=== PATIENT | male | born 1975 | race Caucasian/White ===

== ENCOUNTER → 2020-03-05 | Outpatient (CLI) | payer BC ==
--- NOTE | 2020-03-05 11:20 | US ---
EXAMINATION TYPE: US abdomen comp/pelvis limited DATE OF EXAM: 03/05/2020 COMPARISON: NONE CLINICAL HISTORY: 44-year-old male R10.9 Abdominal wall pain. Generalized pain. TECHNIQUE: Multiple sonographic images of the abdomen and bladder are obtained. FINDINGS: EXAM MEASUREMENTS: Liver Length: 19.3 cm Gallbladder Wall: 0.2 cm CBD: 0.4 cm Spleen: 11.7 cm Right Kidney: 11.9 x 6.4 x 6.2 cm Left Kidney: 11.6 x 6.0 x 6.1 cm Pancreas: Suboptimal visualization of the pancreatic tail due to shadowing from bowel gas. Liver: Appears enlarged in size. Gallbladder: wnl CBD: wnl Spleen: wnl Kidneys: No hydronephrosis. Upper IVC: Only a small portion of the upper abdominal IVC is visualized and shows no gross organomeg mayte. Abd Aorta: Mid portion obscured by overlying bowel gas, no AAA visualized in portions seen Bladder: Underdistention of the bladder limits its evaluation. Bilateral Jets not seen IMPRESSION: Hepatomegaly 19.3 cm. No gallstones or biliary ductal dilatation.
== END | disposition home or self-care (01) ==
LOC: RADUSWWP 08:57
PROVIDERS: ATTEND Family Medicine
DX: R16.0 Hepatomegaly, not elsewhere classified (principal)
CPT/HCPCS: 76700; 76857